=== PATIENT | male | born 1975 | race Caucasian/White ===

== ENCOUNTER → 2024-03-13 08:05 | Outpatient (CLI) | payer OTHER, SELFPAY ==
[2024-03-13 08:58] LABS: Hemoglobin A1C% w Est Avg Glu 8.6 % (4.0-6.0)
[2024-03-13 08:59] LABS: Add Manual Diff / Slide Review NO; Basophils Absolute Auto 0 /uL (0-100); Basophils Percent Auto 0.6 % (0-2); Eosinophils Absolute Auto 300 /uL (0-450); Eosinophils Percent Auto 3.4 % (2-4); Hematocrit 45.1 % (41-53); Hemoglobin 15.6 g/dL (13.5-17.5); Lymphocytes Absolute Auto 2400 /uL (1100-4500); Lymphocytes Percent Auto 28.8 % (25-40); Mean Corpuscular HGB Conc 34.6 % (30-36); Mean Corpuscular Hemoglobin 29.7 PG (26-34); Mean Corpuscular Volume 85.7 fL (80-100); Monocytes Absolute Auto 700 /uL (0-900); Neutrophils Absolute Auto 4900 /uL (1500-7000); Neutrophils Percent Auto 59.2 % (50-75); Platelet Count 323 X10^3/uL (150-400); Red Blood Cell Count 5.26 X10^6/uL (4.5-5.9); White Blood Cell Count 8.3 X10^3/uL (4.5-11.0)
[2024-03-13 09:17] LABS: Alanine Aminotransferase 46 IU/L (<50); Albumin 4.1 g/dL (3.5-5.0); Albumin Globulin Ratio 1.5 (1.0-2.8); Alkaline Phosphatase 101 U/L (38-126); Aspartate Aminotransferase 35 IU/L (17-59); BUN Creatinine Ratio 12.9 (6-22); Bilirubin Total 0.9 mg/dL (0.2-1.3); Blood Urea Nitrogen 12 mg/dL (9-20); Calcium 9.3 mg/dL (8.4-10.2); Carbon Dioxide 24 mmol/L (22-32); Chloride 103 mmol/L (98-107); Cholesterol 184 mg/dL (140-199); Estimated Glomerular Filt Rate > 60 mL/min (>60); Globulin 2.7 g/dL (1.7-4.1); Glucose 230 mg/dL (70-100); HDL Cholesterol 30 mg/dL (40-60); HEMOLYSIS < 15 (0-50); LDL Cholesterol Calculated 113 mg/dL (<100); Potassium 4.3 mmol/L (3.4-5.1); Sodium 136 mmol/L (137-145); Total Protein 6.8 g/dL (6.3-8.2); Triglycerides 207 mg/dL (35-150)
[2024-03-13 09:40] LABS: TSH w/ Reflex to FT4 1.19 uIU/mL (0.47-4.68)
== END ==
PROVIDERS: PCP Family Medicine; Referring Provider Family Medicine; Visit Provider Family Medicine
DX: Z00.00 Encounter for general adult medical examination without abnormal findings (principal); Z68.39 Body mass index [BMI] 39.0-39.9, adult; Z76.89 Persons encountering health services in other specified circumstances; E66.01 Morbid (severe) obesity due to excess calories; Z13.220 Encounter for screening for lipoid disorders; Z13.1 Encounter for screening for diabetes mellitus
CPT/HCPCS: 36415; 80053; 80061; 83036; 84443; 85025

== ENCOUNTER 2024-10-30 06:44 | Day surgery (SDC) | payer OTHER, SELFPAY ==
--- NOTE | 2024-10-30 | PATH_ITS ---
[facility] Accession Number: [id number] No. of containers..01 Tissue . 01 Material submitted: . colon - DESCENDING POLYP . 01 Diagnosis: DESCENDING COLON POLYP: Hyperplastic polyp. MRV 11/09/2024 1438 Local . 01 Electronically signed: . Latesha Felipe MD, Pathologist NPI- [id number] . 01 Gross description: . Received in formalin labeled with two patient identifiers and descending polyp, and consists of a single, 0.6 cm in greatest dimension maldonado tissue. Submitted in toto in cassette A1. ([id number]) /TOMMY 11/04/2024 2220 Local . 01 Pathologist provided ICD-10: D12.4 . 01 CPT . 400858 Specimen Comment: A courtesy copy of this report has been sent to [phone] Performed at: [address] [id number] MD Cesar Colindres MD Phone: [phone]
[2024-10-30 07:04] VITALS: BP 135/93; PULSE 102; RESP 16; TEMP 36.2; O2SAT 98
[2024-10-30] MEDS: LACTATED RINGERS 1,000 ML 42 ML IV (07:13)
--- NOTE | 2024-10-30 07:39 | PM.HP.IH.1 ---
History of Present Illness History of Present Illness Date Patient Seen: 10/30/24 Time Patient Seen: 07:39 Chief complaint: Colonoscopy Narrative: Josh is a 49 year old man for a screening colonoscopy. He had a colonoscopy in 2017 that was normal. No family history of colon cancer. No hematochezia or melena. [facility] Surgical History (Updated 07/03/24 @ 06:57 by Shelbie De La Rosa MA) History of cholecystectomy (09/12/11) Family History (Updated 07/03/24 @ 06:58 by Shelbie De La Rosa MA) Father Lung cancer Mother Lymphoma Meds Home Medications and Allergies Home Medications ?Medication ?Instructions ?Recorded ?Confirmed ?Type lisinopril 10 mg tablet 10 mg PO DAILY #90 tabs 03/18/24 10/30/24 Rx pravastatin 20 mg tablet 20 mg PO BEDTIME #60 tabs 07/03/24 10/30/24 Rx sodium,potassium,mag sulfates 17.5 See Rx Instructions PO .COMPLEX 09/21/24 Rx gram-3.13 gram-1.6 gram oral soln #354 mL (Suprep Bowel Prep Kit) metformin 500 mg tablet 500 mg PO BID #180 tabs 09/22/24 10/30/24 Rx Allergies Allergy/AdvReac Type Severity Reaction Status Date / Time No Known Drug Allergies Allergy Verified 10/30/24 06:59 Exam Vital Signs (past 8 hours): - 10/30/24 07:04 Temperature 97.2 F L Pulse Rate 102 H Respiratory Rate 16 Blood Pressure 135/93 H Pulse Oximetry 98 Oxygen Delivery Method Room Air Oxygen Delivery Method Room Air Const General: No acute distress Assessment & Plan Assessment and plan (1) Colon cancer screening: Status: Acute Plan Colonoscopy for colon cancer screening Time-Based Coding :: [TOTAL MINUTES] spent with patient and on the chart (including review of chart, obtaining history, exam, reviewing outside data, placing orders, documenting exam and treatment plan, and counseling patient) on [DATE]. PROFEE [employer] Document charge(s): No
[2024-10-30 08:09] VITALS: BP 120/72; PULSE 103; RESP 20; TEMP 36.7; O2SAT 95
--- NOTE | 2024-10-30 08:12 | PM.OP.COLON ---
Operative Date/Time/Diagnoses Date of procedure: 10/30/24 Time of procedure: 08:12 Pre-op diagnosis: Colon cancer screening Post-op diagnosis: same Procedure & Clinicians Study performed: Colonoscopy Same procedure(s) as scheduled: Yes Surgeon: Hai Leonardo Anesthesia Type: MAC +/- Procedure Notes Procedure in detail: Surgeon: Hai Leonardo MD Anesthesia: Maura Cornelius D.Kali Procedure: The patient was brought to the endoscopy suite, placed in left lateral decubitus position. The patient was connected to monitoring devices. A time-out was performed. Sedation was administered. Once the patient was adequately sedated, a digital rectal exam was performed and was normal. The scope was then inserted and advanced to the cecum where the appendiceal orifice was identified and photographed. The scope was then slowly withdrawn over greater than 6 minutes. The mucosa was thoroughly inspected. There was a 3 mm polyp in the descending colon removed with a cold snare. There was moderate sigmoid colon diverticulosis. The scope was retroflexed in the rectum. No other abnormalities were found. The scope was straightened and removed. The patient was awakened and brought to recovery. Scope withdrawal time: 11 minutes Sedation time: 15 minutes EBL: 3 mL Findings: 3 mm descending colon polyp, moderate sigmoid colon diverticulosis Post-procedure Disposition: PACU
[2024-10-30 08:13] VITALS: BP 126/80; PULSE 107; RESP 17; O2SAT 95
[2024-10-30 08:18] VITALS: BP 131/81; PULSE 99; RESP 20; TEMP 37.2; O2SAT 95
[2024-10-30 08:20] VITALS: BP 128/83; PULSE 96; RESP 21; O2SAT 96
== END 2024-10-30 08:39 | disposition home or self-care (01) ==
PROVIDERS: Surgery; PCP Family Medicine; Referring Provider Surgery; Visit Provider Surgery
PROC: 0DJD8ZZ Inspection of Lower Intestinal Tract, Via Natural or Artificial Opening Endoscopic (ICD-10-PCS; CPT 45378; principal; 2024-10-30 07:45)
DX: Z12.11 Encounter for screening for malignant neoplasm of colon (principal); K57.30 Diverticulosis of large intestine without perforation or abscess without bleeding; K63.5 Polyp of colon
CPT/HCPCS: 45385; J2704

== ENCOUNTER → 2024-11-23 11:50 | Outpatient (CLI) | payer OTHER, SELFPAY ==
[2024-11-23 14:06] LABS: Hemoglobin A1C% w Est Avg Glu 8.1 % (4.0-6.0)
== END ==
PROVIDERS: PCP Family Medicine; Referring Provider Family Medicine; Visit Provider Family Medicine
DX: E11.9 Type 2 diabetes mellitus without complications (principal)
CPT/HCPCS: 36415; 83036